=== PATIENT | male | born 1955 | race Caucasian/White ===

== ENCOUNTER → 2024-11-09 11:48 | Outpatient (BNVA) | payer MEDICARE, BC, SELFPAY | PROVIDERS: PCP Nurse Practitioner; Visit Provider Clinical Nurse Specialist Adult Health | DX: J44.9 Chronic obstructive pulmonary disease, unspecified (principal) | CPT/HCPCS: 80053; 85025 ==

== ENCOUNTER 2024-12-17 22:36 | Emergency (ER) | payer MEDICARE, BC, SELFPAY ==
[2024-12-17 22:44] VITALS: BP 136/83; PULSE 79; RESP 18; TEMP 36.9; O2SAT 88; BMI 29.8
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
[2024-12-17 23:44] VITALS: PULSE 88; RESP 18; O2SAT 90
[2024-12-17 23:50] VITALS: PULSE 85; O2SAT 88
[2024-12-17] MEDS: morphine 4 mg/mL SDV 1 mL IVP (23:54)
[2024-12-17] MEDS: ondansetron 2 mg/ML SDV 2 mL 4 MG IVP (23:54)
[2024-12-18 00:13] VITALS: BP 114/85; PULSE 89; RESP 16; O2SAT 93
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
[2024-12-18] MEDS: iohexol 350 mg/mL 500 mL Btl (per mL) IV (00:48)
[2024-12-18] MEDS: ketamine 100 mg/mL Inj 5 mL 50 MG IVP (00:51)
[2024-12-18 01:18] LABS: Hematocrit 42.9 % (37-53); Hemoglobin 14.70 g/dL (11.27-16.99); Mean Corpuscular HGB Conc 34.3 g/dL (30-55); Mean Corpuscular Hemoglobin 31.5 pg (27-33); Mean Corpuscular Volume 92.1 fl (82-101); Nucleated Red Blood Cells % 0 %; Platelet Count 210 10^3/cmm (157-399); Red Blood Count 4.66 10^6/uL (3.85-5.65); White Blood Count 18.51 10^3/uL (3.29-11.43)
[2024-12-18 01:35] LABS: Alanine Aminotransferase 23 U/L (0-41); Albumin Level 3.9 g/dL (3.5-5.2); Alkaline Phosphatase 65 U/L (40-130); Anion Gap 15.4 (5-19); Aspartate Amino Transferase 19 U/L (0-40); Blood Urea Nitrogen 15 mg/dL (8-23); Calcium 8.7 mg/dL (8.5-10.5); Carbon Dioxide 24 mmol/L (22-29); Chloride 102 mmol/L (98-107); Creatinine Clr Calc Pharmacy 94.6382; Globulin 2.5 g/dL (1.3-4.6); Glucose 164 mg/dL (65-115); Osmolality Calculated 288 mOsm/kg (285-295); Potassium 4.4 mmol/L (3.5-5.1); Sodium 137 mmol/L (136-145); Total Protein 6.4 g/dL (6.6-8.7)
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
[2024-12-18] MEDS: ondansetron 2 mg/ML SDV 2 mL 4 MG IVP ×2 (02:03→04:23)
[2024-12-18 02:04] VITALS: RESP 16
[2024-12-18] MEDS: morphine 4 mg/mL SDV 1 mL IVP ×2 (02:04→04:23)
[2024-12-18 02:23] VITALS: BP 144/80; PULSE 78; O2SAT 90
[2024-12-18 04:23] VITALS: RESP 16
--- NOTE | 2024-12-18 04:45 | PC.NURSE ---
Attempted to call on patient discharge status but unable to get ahold of her.
[2024-12-18 04:46] VITALS: BP 155/97; PULSE 75; O2SAT 91
== END 2024-12-18 04:29 | disposition home or self-care (01) ==
PROVIDERS: Emergency Provider Emergency Medicine; PCP Clinical Nurse Specialist Adult Health
DX: S22.41XA Multiple fractures of ribs, right side, initial encounter for closed fracture (principal); J94.2 Hemothorax; Y00.XXXA Assault by blunt object, initial encounter; Z87.891 Personal history of nicotine dependence
CPT/HCPCS: 36415; 71250; 74177; 80053; 85025; 94640; 96374; 96375; 96376; 99285; J2270; J2405; J3490; J9999

== ENCOUNTER 2024-12-19 05:40 | Inpatient (IN) | payer MEDICARE, BC, SELFPAY ==
[2024-12-19] VITALS (13 sets, daily range): BP systolic 112–182; BP diastolic 65–95; PULSE 67–115; RESP 16–20; TEMP 36.6–37; O2SAT 88–97; BMI 27.8
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
--- NOTE | 2024-12-19 05:46 | ECG_ITS ---
[facility] Test Date: 2024-12-19 Pat Name: Marshal Gallardo Department: Room: Gender: Male Sleep Scientist: : 1955 Requested By: Luis A Bill Order Number: [id number] Norman MD: Garry Melgar M.D. Measurements Intervals [place] Rate: 110 P: 56 WA: 144 QRS: 35 QRSD: 104 T: 68 QT: 315 QTc: 426 Interpretive Statements SINUS TACHYCARDIA ABNORMAL RHYTHM ECG No previous ECG available for comparison Electronically Signed On 12-19-2024 20:28:43 CDT by Garry Melgar M.D. [id number]
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
[2024-12-19 05:58] LABS: Hematocrit 45.3 % (37-53); Hemoglobin 15.00 g/dL (11.27-16.99); Mean Corpuscular HGB Conc 33.1 g/dL (30-55); Mean Corpuscular Hemoglobin 31.3 pg (27-33); Mean Corpuscular Volume 94.4 fl (82-101); Nucleated Red Blood Cells % 0 %; Platelet Count 215 10^3/cmm (157-399); Red Blood Count 4.80 10^6/uL (3.85-5.65); White Blood Count 24.49 10^3/uL (3.29-11.43)
[2024-12-19 06:13] LABS: Alanine Aminotransferase 19 U/L (0-41); Albumin Level 4.2 g/dL (3.5-5.2); Alkaline Phosphatase 72 U/L (40-130); Anion Gap 18.1 (5-19); Aspartate Amino Transferase 24 U/L (0-40); Blood Urea Nitrogen 19 mg/dL (8-23); Calcium 9.1 mg/dL (8.5-10.5); Carbon Dioxide 24 mmol/L (22-29); Chloride 98 mmol/L (98-107); Creatinine Clr Calc Pharmacy 91.7763; Globulin 3.2 g/dL (1.3-4.6); Glucose 143 mg/dL (65-115); Osmolality Calculated 287 mOsm/kg (285-295); Potassium 4.1 mmol/L (3.5-5.1); Sodium 136 mmol/L (136-145); Total Protein 7.4 g/dL (6.6-8.7)
[2024-12-19] MEDS: cefTRIAXone 1,000 mg SDV 1000 MG IVP (08:05)
[2024-12-19] MEDS: HYDROcodone-acetaminophen 5-325 mg Tablet 1 TAB PO (14:40)
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
[2024-12-19] MEDS: ondansetron 2 mg/ML SDV 2 mL 4 MG IVP (17:27)
--- NOTE | 2024-12-19 21:58 | ECG_ITS ---
[facility] 2024-[facility]19 Pat Name: Marshal Gallardo Department: Room: 252 Gender: Male Functional Consultant: : 1955 Requested By: Martita Odom Order Number: [id number] Norman MD: Andre Shanks M.D. Measurements Intervals [place] Rate: 108 P: 58 OH: 145 QRS: 43 QRSD: 114 T: 57 QT: 327 QTc: 438 Interpretive Statements SINUS TACHYCARDIA MODERATE INTRAVENTRICULAR CONDUCTION DELAY [110+ ms QRS DURATION] ABNORMAL RHYTHM ECG Compared to ECG 12/19/2024 05:46:20 Intraventricular conduction delay now present Electronically Signed On 12-21-2024 08:14:33 CDT by Andre Shanks M.D. [email or web address]
[2024-12-20] VITALS (14 sets, daily range): BP systolic 116–153; BP diastolic 70–75; PULSE 82–110; RESP 17–18; TEMP 36.8–37; O2SAT 87–95
[2024-12-20 02:55] LABS: Glucose Urine UA Negative (Normal); Nitrate Urine Negative (Negative); Specific Gravity, Urine 1.028 (1.005-1.030)
[2024-12-20 03:16] LABS: UA Slide Review UA Slide Review Perf
[2024-12-20 03:22] LABS: Hematocrit 42.7 % (37-53); Hemoglobin 14.20 g/dL (11.27-16.99); Mean Corpuscular HGB Conc 33.3 g/dL (30-55); Mean Corpuscular Hemoglobin 31.0 pg (27-33); Mean Corpuscular Volume 93.2 fl (82-101); Nucleated Red Blood Cells % 0 %; Platelet Count 193 10^3/cmm (157-399); Red Blood Count 4.58 10^6/uL (3.85-5.65); White Blood Count 19.74 10^3/uL (3.29-11.43)
--- NOTE | 2024-12-20 09:00 | XR_ITS ---
WS: [id number] XR chest 2V* [id number] REASON FOR EXAM: follow up left pleural effusion and pneumonia FINDINGS: Compared to 12/19/2024, atelectasis in the right lung base. There is consolidation in the left lower lung obscuring the left hemidiaphragm. There is obscuration of the left costophrenic angle. The left chest is unchanged compared to 12/19/2024. No other interval change or new findings. XR/XR chest 2V* [id number] IMPRESSION: Interval right lower lung atelectasis. Abnormal left hemithorax stable.
--- NOTE | 2024-12-20 09:31 | PC.CHAP ---
Pastoral Care Encounter/Spiritual Assessment Type of Contact [] Declined breaster visit [] Patient/Family/Request visit [] Outpatient visit [] Follow-up visit [] Physician referral [] Code/Alert [x] Routine visit [] Staff referral [] Actively dying [] Patient sleeping [] Family support [] [] Out of room [] Palliative care [] [] Receiving care in room [] Pre-surgical visit [] Trauma [] Long length of stay [] ICU visit [] Other: Relational/Emotional Strength [] Patient feels connected with others/family/visitors/staff [] Distress [] Loneliness/isolation [] Abandonment Spirituality of Patient [x] Person of Molly [] Attends Congregational of their Molly [x] Believes in Prayer [] Reads Bible or Anglican materials [] There are Spiritual issues to be addressed Long Term Interventions [x] Prayer [x] Active listening [] Non-anxious presence [] Spiritual/emotional support [] Crisis/trauma care [] Spiritual counseling [] Bereavement support [] Provided bereavement packet [x] Provided Bible/devotional materials [] Provided toy/stuffed animal, coloring book to patient or family member [] Provided Communion [] Anointing/Kermit [] Salvation [x] Completed spiritual assessment [] Other: Impact on Illness or Injury [] Angry [] Fearful [] Anxious [] Often cries [] Exhaustion [] Unable to work [] Unable to attend scientology [] Unable to walk/stand [] Unable to read [] Unable to drive [] Unable to eat/drink [] Unable to sleep [] Unable to be with family [] Patient intubated [] Other: Summary Time spent with patient 15 min
[2024-12-20] MEDS: cefTRIAXone 2,000 mg SDV 2000 MG IVP (09:38)
[2024-12-20] MEDS: oxyCODONE-APAP 5-325 mg Tablet 1 TAB PO ×2 (09:43→16:30)
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
[2024-12-21] VITALS (14 sets, daily range): BP systolic 123–142; BP diastolic 68–88; PULSE 83–105; RESP 16–20; TEMP 36.4–37.1; O2SAT 92–96
[2024-12-21] MEDS: oxyCODONE-APAP 5-325 mg Tablet 1 TAB PO ×5 (04:09→20:13)
[2024-12-21 05:12] LABS: Hematocrit 45.6 % (37-53); Hemoglobin 14.20 g/dL (11.27-16.99); Mean Corpuscular HGB Conc 31.1 g/dL (30-55); Mean Corpuscular Hemoglobin 31.1 pg (27-33); Mean Corpuscular Volume 100.0 fl (82-101); Nucleated Red Blood Cells % 0 %; Platelet Count 192 10^3/cmm (157-399); Red Blood Count 4.56 10^6/uL (3.85-5.65); White Blood Count 14.74 10^3/uL (3.29-11.43)
[2024-12-21 06:24] LABS: Alanine Aminotransferase 19 U/L (0-41); Albumin Level 4.2 g/dL (3.5-5.2); Alkaline Phosphatase 68 U/L (40-130); Anion Gap 19.2 (5-19); Aspartate Amino Transferase 14 U/L (0-40); Blood Urea Nitrogen 27 mg/dL (8-23); Calcium 9.9 mg/dL (8.5-10.5); Carbon Dioxide 27 mmol/L (22-29); Chloride 97 mmol/L (98-107); Creatinine Clr Calc Pharmacy 85.6156; Globulin 3.8 g/dL (1.3-4.6); Glucose 112 mg/dL (65-115); Osmolality Calculated 294 mOsm/kg (285-295); Potassium 4.2 mmol/L (3.5-5.1); Sodium 139 mmol/L (136-145); Total Protein 8.0 g/dL (6.6-8.7)
[2024-12-21] MEDS: cefTRIAXone 2,000 mg SDV 2000 MG IVP (09:23)
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
[2024-12-22] MEDS: oxyCODONE-APAP 5-325 mg Tablet 1 TAB PO ×3 (00:28→08:18)
[2024-12-22 03:53] VITALS: BP 116/68; PULSE 80; RESP 20; TEMP 36
[2024-12-22 05:08] LABS: Hematocrit 39.9 % (37-53); Hemoglobin 13.40 g/dL (11.27-16.99); Mean Corpuscular HGB Conc 33.6 g/dL (30-55); Mean Corpuscular Hemoglobin 31.4 pg (27-33); Mean Corpuscular Volume 93.4 fl (82-101); Nucleated Red Blood Cells % 0 %; Platelet Count 219 10^3/cmm (157-399); Red Blood Count 4.27 10^6/uL (3.85-5.65); White Blood Count 12.10 10^3/uL (3.29-11.43)
[2024-12-22 05:29] LABS: Alanine Aminotransferase 43 U/L (0-41); Albumin Level 3.9 g/dL (3.5-5.2); Alkaline Phosphatase 79 U/L (40-130); Anion Gap 16.1 (5-19); Aspartate Amino Transferase 33 U/L (0-40); Blood Urea Nitrogen 31 mg/dL (8-23); Calcium 9.2 mg/dL (8.5-10.5); Carbon Dioxide 27 mmol/L (22-29); Chloride 99 mmol/L (98-107); Creatinine Clr Calc Pharmacy 85.6156; Globulin 3.2 g/dL (1.3-4.6); Glucose 101 mg/dL (65-115); Osmolality Calculated 293 mOsm/kg (285-295); Potassium 4.1 mmol/L (3.5-5.1); Sodium 138 mmol/L (136-145); Total Protein 7.1 g/dL (6.6-8.7)
[2024-12-22 07:17] VITALS: BP 127/78; PULSE 77; RESP 18; TEMP 36.4; O2SAT 95
[2024-12-22 07:52] VITALS: PULSE 88; RESP 18; O2SAT 92
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
[2024-12-22] MEDS: cefTRIAXone 2,000 mg SDV 2000 MG IVP (08:17)
--- NOTE | 2024-12-22 09:16 | PC.NURSE ---
Report called to [facility] at [phone]. Prescriptions sent to [facility] in [place] per SNF request
--- NOTE | 2024-12-22 09:23 | PC.SOCIAL ---
IMM Update pg 2 of IMM Updated and reviewed w/ patient. Copy provided and copy dated, initialed and placed in chart.
[2024-12-22 09:42] VITALS: BP 127/78; PULSE 78; RESP 17; TEMP 36.4; O2SAT 94
--- NOTE | 2024-12-22 09:53 | PC.NURSE ---
Patient Discharged via SNF transport at 0936. All IVs and monitoring equipment removed prior to discharge. Discharge information faxed to [facility]
== END 2024-12-22 09:36 | disposition skilled nursing facility (03) | DRG 183 ==
LOC: ER 08:02 → MEDSURG 08:17
PROVIDERS: Admitting Provider Internal Medicine; Emergency Provider Emergency Medicine; PCP Clinical Nurse Specialist Adult Health; Visit Provider Student in an Organized Health Care Education/Training Program
DX: S22.41XA Multiple fractures of ribs, right side, initial encounter for closed fracture (principal); J18.9 Pneumonia, unspecified organism; R82.1 Myoglobinuria; Y04.2XXA Assault by strike against or bumped into by another person, initial encounter; F10.20 Alcohol dependence, uncomplicated; J42 Unspecified chronic bronchitis; Z87.891 Personal history of nicotine dependence
CPT/HCPCS: 36415; 71045; 71046; 80053; 81001; 82550; 85025; 87040; 87070; 87205; 93005; 94640; 94664; 94760; 96365; 96372; 96375; 97116; 97161; 97167; 97535; 99285; J0456; J0696; J1100; J1650; J1885; J2405; J7050; J9999; Q0144

== ENCOUNTER 2024-12-23 01:44 | Emergency (ER) | payer MEDICARE, BC, SELFPAY ==
[2024-12-23 01:47] VITALS: BP 153/111; PULSE 107; RESP 18; TEMP 36.9; O2SAT 89; BMI 29.5
[2024-12-23] MEDS: oxyCODONE-APAP 5-325 mg Tablet 1 TAB PO (02:19)
[2024-12-23 02:34] VITALS: PULSE 108; RESP 18; O2SAT 92
[2024-12-23 02:40] VITALS: PULSE 105
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
[2024-12-23 04:17] VITALS: BP 124/81; PULSE 99; RESP 18; O2SAT 91
[2024-12-23 05:59] VITALS: BP 121/80; PULSE 97; RESP 16; O2SAT 92
== END 2024-12-23 06:08 | disposition home or self-care (01) ==
PROVIDERS: Emergency Provider Family Medicine; PCP Clinical Nurse Specialist Adult Health
DX: J30.81 Allergic rhinitis due to animal (cat) (dog) hair and dander (principal); Z87.891 Personal history of nicotine dependence
CPT/HCPCS: 94640; 99283; J7512; J9999

== ENCOUNTER → 2024-12-27 14:52 | Outpatient (BNVA) | payer MEDICARE, BC, SELFPAY | PROVIDERS: PCP Clinical Nurse Specialist Adult Health; Visit Provider Clinical Nurse Specialist Adult Health | DX: S22.31XA Fracture of one rib, right side, initial encounter for closed fracture (principal); X58.XXXA Exposure to other specified factors, initial encounter; J90 Pleural effusion, not elsewhere classified | CPT/HCPCS: 71046 ==

== ENCOUNTER → 2025-01-03 11:11 | Outpatient (BNVA) | payer MEDICARE, BC, SELFPAY | PROVIDERS: PCP Clinical Nurse Specialist Adult Health; Visit Provider Clinical Nurse Specialist Adult Health | DX: J81.1 Chronic pulmonary edema (principal); J15.9 Unspecified bacterial pneumonia; J90 Pleural effusion, not elsewhere classified | CPT/HCPCS: 71046; 85025 ==